=== PATIENT | male | born 1975 | race Two or more races ===

== ENCOUNTER 2019-07-09 00:56 | Emergency (ER) | payer MEDICAID ==
[2019-07-09 01:12] VITALS: BP 153/88
== END 2019-07-09 02:00 | disposition left against medical advice (07) ==
LOC: ER 00:56
DX: Z53.21 Procedure and treatment not carried out due to patient leaving prior to being seen by health care provider (principal)

== ENCOUNTER 2020-02-23 20:04 | Emergency (ER) | payer MEDICAID ==
[2020-02-23 20:26] VITALS: BP 137/72
--- NOTE | 2020-02-23 21:50 | EKG REPORT ---
SEVERITY:- NORMAL ECG - SINUS RHYTHM : Confirmed by: Hyun Gonzalez 23-Feb-2020 21:49:46
== END 2020-02-23 21:00 | disposition left against medical advice (07) ==
LOC: ER 20:04
DX: Z53.21 Procedure and treatment not carried out due to patient leaving prior to being seen by health care provider (principal)
CPT/HCPCS: 93005; 93010